=== PATIENT | female | born 1955 | race Caucasian/White ===

== ENCOUNTER 2016-10-15 15:36 | Outpatient (CLI) | payer OTHER ==
--- NOTE | 2016-10-15 16:25 | Mammography Report ---
LEFT DIGITAL DIAGNOSTIC MAMMOGRAM : 10/15/16 15:36:00 CLINICAL: Recalled for asymmetry. COMPARISON:09/29/16 screening FINDINGS: Lateralmedial and spot magnification CC views were performed. A circumscribed density persists on the spot view and appears to be in the upper portion of the breast on the lateral view. We were unable to perform an ultrasound of the left breast since we had not received an order for a left breast ultrasound. As result of that, she was not scheduled for an ultrasound. IMPRESSION: Left asymmetry needing further evaluation. BI-RADS CATEGORY: 0 -- Status Needs Additional Imaging RECOMMENDATION: Return for a left breast ultrasound. ACR BI-RADS MAMMOGRAPHIC CODES: 0 = Needs additional imaging evaluation; 1 = Negative; 2 = Benign; 3 = Probably benign; 4 = Suspicious; 5 = Malignant; 6 = Known biopsy-proven malignancy COMMENT: 1. Dense breast tissue, i.e., adenosis, fibrocystic changes, etc., may obscure an underlying neoplasm. 2. Approximately 10% of cancers are not detected with mammography. 3. A negative mammography report should not delay biopsy if a clinically suspicious mass is present. COMMENT: Patient follow-up letters are generated via our [employer] application.
== END 2016-10-15 15:37 | disposition home or self-care (01) ==
LOC: SPVWC 15:36
PROVIDERS: ATTEND Internal Medicine
DX: R92.8 Other abnormal and inconclusive findings on diagnostic imaging of breast (principal)
CPT/HCPCS: G0206-LT

== ENCOUNTER 2016-11-03 15:42 | Outpatient (CLI) | payer OTHER ==
--- NOTE | 2016-11-03 16:16 | Ultrasound Report ---
LEFT BREAST ULTRASOUND: 11/03/16 15:42:00 CLINICAL: Asymmetry on the mammogram. COMPARISON: 09/29/16 and 10/15/16 mammograms. FINDINGS: Ultrasound left breast(including all four quadrants and the retroareolar area) was performed and demonstrated normal fatty and fibroglandular structures. No mass, cyst or shadowing to correlate with the mammographic asymmetry. IMPRESSION: A probably benign asymmetry in the upper inner left breast. BI-RADS 3 - - Probably Benign RECOMMENDATION: Six month followup left mammogram.
== END 2016-11-03 15:43 | disposition home or self-care (01) ==
LOC: SPVWC 15:42
PROVIDERS: ATTEND Internal Medicine
DX: R92.8 Other abnormal and inconclusive findings on diagnostic imaging of breast (principal)

== ENCOUNTER 2017-04-08 13:21 | Outpatient (CLI) | payer OTHER ==
--- NOTE | 2017-04-08 14:09 | Mammography Report ---
LEFT DIGITAL DIAGNOSTIC MAMMOGRAM with CAD: 04/08/17 13:21:00 CLINICAL: Follow-up upper inner asymmetry. COMPARISON:10/15/16 FINDINGS: A previously described low density circumscribed asymmetry with a lobular shape is unchanged and is probably a benign lymph node with a significant fatty component. IMPRESSION: No mammographic evidence of malignancy.Benign 8mm nodule or lymph node in the inner breast. BI-RADS CATEGORY: 2 -- Benign RECOMMENDATION: Return to routine mammographic screening. ACR BI-RADS MAMMOGRAPHIC CODES: 0 = Needs additional imaging evaluation; 1 = Negative; 2 = Benign; 3 = Probably benign; 4 = Suspicious; 5 = Malignant; 6 = Known biopsy-proven malignancy COMMENT: 1. Dense breast tissue, i.e., adenosis, fibrocystic changes, etc., may obscure an underlying neoplasm. 2. Approximately 10% of cancers are not detected with mammography. 3. A negative mammography report should not delay biopsy if a clinically suspicious mass is present. COMMENT: Patient follow-up letters are generated by our [employer] application.
== END 2017-04-08 13:22 | disposition home or self-care (01) ==
LOC: SPVWC 13:21
PROVIDERS: ATTEND Internal Medicine
DX: R92.8 Other abnormal and inconclusive findings on diagnostic imaging of breast (principal)
CPT/HCPCS: G0206-LT

== ENCOUNTER 2017-10-06 13:11 | Outpatient (CLI) | payer OTHER ==
--- NOTE | 2017-10-06 13:58 | Mammography Report ---
Screening mammogram: Routine views demonstrate an intermediate density fibroglandular pattern. Comparison is made to prior exam in September 2016. A small circumscribed nodule in the medial left breast remains unchanged as does the remainder of the breast pattern bilaterally which is otherwise unremarkable. CAD used. Impression: Stable breast pattern. Recommendation: Annual mammogram followup. BI-RADS CATEGORY: 2 = Benign ACR BI-RADS MAMMOGRAPHIC CODES: 0 = Needs additional imaging evaluation; 1 = Negative; 2 = Benign; 3 = Probably benign; 4 = Suspicious; 5 = Malignant; 6 = Known biopsy-proven malignancy COMMENT: 1. Dense breast tissue, i.e., adenosis, fibrocystic changes, etc., may obscure an underlying neoplasm. 2. Approximately 10% of cancers are not detected with mammography. 3. A negative mammography report should not delay biopsy if a clinically suspicious mass is present.
== END 2017-10-06 13:12 | disposition home or self-care (01) ==
LOC: SPVWC 13:11
PROVIDERS: ATTEND Internal Medicine
DX: Z12.31 Encounter for screening mammogram for malignant neoplasm of breast (principal)
CPT/HCPCS: 77067